=== PATIENT | female | born 1985 | race Caucasian/White ===

== ENCOUNTER 2023-11-04 20:50 | Outpatient (REF) | payer OTHER, SELFPAY ==
[2023-11-07 16:10] LABS: Age Gdln ACOG Testing Note (.); HPV Aptima Negative (Negative); IGP, Aptima HPV, rfx 16/18,45 Note (.)
== END 2023-11-04 20:51 | disposition home or self-care (01) ==
LOC: LAB 20:50
PROVIDERS: Visit Provider Obstetrics & Gynecology
DX: Z01.419 Encounter for gynecological examination (general) (routine) without abnormal findings (principal)
CPT/HCPCS: 87624; G0145

== ENCOUNTER 2024-11-09 21:18 | Outpatient (REF) | payer OTHER, SELFPAY ==
--- OUTSIDE RECORDS SUMMARY | 2024-11-09 21:22 | XMS_ITS | CCD ---
Author Organization [facility] Care Team Providers Care Professor Of Social Work Name Role Phone DR PALMIRA WORTHY Primary Care Unavailable BLAIR, DR OTERO Attending Unavailable BLAIR, DR OTERO Consulting Unavailable BLAIR, DR OTERO Admitting Unavailable Anastasiia Castro Unavailable Xiao Langford Unavailable Palmira Worthy MD Primary Care Provider [phone] BRANDEN PINTO Attending Unavailable Palmira Worthy MD Primary Care Provider [phone] YASMEEN BRAND Attending Unavailable PALMIRA WORTHY Referring Unavailable PALMIRA WORTHY Primary Care Unavailable YASMEEN BRAND Attending Unavailable YASMEEN BRAND Referring Unavailable PALMIRA WORTHY Primary Care Unavailable YASMEEN BRAND Referring Unavailable PALMIRA WORTHY Primary Care Unavailable Allergies Allergy Classification Reported Allergen(s) Allergy Type Date of Onset Reaction(s) Facility (1 source) patient allergy list reviewed by nurse or physicia Propensity to adverse reactions 9 Comment:Done [facility] ([facility] Other (1 source) Allergies Reconciled Propensity to adverse reactions Unknown [facility] ([facility] Other Medications Current Medications Medication Drug Class(es) Dates Sig (Normalized) Sig (Original) amoxicillin 500 mg oral capsule (1 source) Penicillin-class Antibacterial Start: 12-19-2022 take 1 capsule by mouth every eight hours Amoxicillin 500 MG 1 capsule Orally three times a day for 10 day(s) Dec, Active chlorthalidone 50 mg oral tablet (19 sources) Thiazide-like Diuretic Start: 11-06-2022 End: 08-31-2024 take 1 tablet by mouth once daily chlorthalidone (Hygroton) 50 MG tablet Take 50 mg by mouth Daily 08/31/2024 Active dextromethorphan hydrobromide 15 mg / guaiFENesin 400 mg / pseudoephedrine hydrochloride 60 mg oral tablet (5 sources) alpha-Adrenergic Agonist, Uncompetitive D-bfaquz-W-asparta te Receptor Antagonist, Sigma-1 Agonist Start: 10-06-2023 End: 11-09-2024 take 1 tablet by mouth every four to six hours as needed Capmist DM 60-15-400 MG tablet TAKE 1 TAB BY MOUTH EVERY 4 TO 6 HRS NEEDED (MAX 4 /DAY) 10/06/2023 11/09/2024 Discontinued Start: 10-06-2023 take 4 tablets by [facility] every twenty-four hours as needed Capmist DM 60-15-400 MG as needed Orally every 4-6 hours as needed, max 4 tablets in 24 hours for 5 days Sep, Active FLUoxetine 20 mg oral capsule (4 sources) Serotonin Reuptake Inhibitor End: 11-09-2024 FLUoxetine (PROzac) 20 MG capsule 11/09/2024 Discontinued hydroCHLOROthiazide 25 mg oral tablet (8 sources) Thiazide Diuretic End: 11-09-2024 hydroCHLOROthiazide (HYDRODiuril) 25 MG tablet 1 (one) time each day at the same time 11/09/2024 Discontinued End: 11-09-2024 take 2 tablets by mouth once daily hydroCHLOROthiazide (HYDRODiuril) 25 MG tablet Take 50 mg by mouth Daily 11/09/2024 Discontinued hydroCHLOROthiaz pipe Active hydrocortisone 10 mg/ml / neomycin 3.5 mg/ml / polymyxin b [id number] unt/ml otic suspension (1 source) Aminoglycoside Antibacterial, Polymyxin-class Antibacterial, Corticosteroid Start: 12-19-2022 Ckwvlufo-Ghweqxiyl-RA 3.5-24878-8 3 drops each ear Three times a day for 7 days Dec, Active Magnesium (2 sources) Start: 10-07-2024 take 1 capsule by mouth once daily Magnesium 400 MG capsule Take 400 mg by mouth Daily 10/07/2024 Active Magnesium Aspart,Citrate,Oxi de 400 mg magnesium capsule (2 sources) Start: 10-20-2024 Magnesium Aspart,Citrate,Oxide 400 mg magnesium capsule Active MG PO October 20, 2024 12:00am meclizine hydrochloride 25 mg chewable tablet (4 sources) Antiemetic Start: 10-20-2024 Meclizine HCl 25 MG chewable tablet Chew 25 mg Daily 10/20/2024 Active Start: 10-20-2024 take 0.5-1 tablets b y mouth twice daily as needed for dizziness Meclizine 25 mg tablet Active 25 MG PO Twice daily as needed for dizziness October 20, 2024 12:00am 1/2 - 1 tab po bid prn methylPREDNISolone 4 mg oral tablet (1 source) Corticosteroid Start: 10-06-2023 methylPREDNISolone 4 MG as directed Orally for 6 Sep, Active metoprolol tartrate 25 mg oral tablet (20 sources) beta-Adrenergic Myke Start: 10-20-2024 take 1 tablet by mouth twice daily at mealtime Start: 08-14-2024 End: 08-31-2024 take 1 tablet by mouth every twenty-four hours in the morning, then take 1 tablet by mouth once daily in the morning, then take 1 tablet by mouth at bedtime metoprolol succinate XL (TOPROL XL) 25 mg 24 hr tablet Indications: Palpitations , Essential hypertension , Localized edema , Shortness of breath , Other fatigue Take 1 tablet (25 mg total) by mouth in the morning. TAKE 1 TABLET BY MOUTH EVERY MORNING AND 1 TABLET BEFORE BEDTIME. 180 tablet 2 08/31/2024 Active Start: 06-04-2024 End: 08-14-2024 take 1 tablet by mouth once daily in the morning metoprolol succinate XL (TOPROL XL) 25 mg 24 hr tablet Indications: Palpitations , Essential hypertension , Localized edema , Shortness of breath , Other fatigue TAKE 1 TABLET BY MOUTH EVERY MORNING AND 1 TABLET BEFORE BEDTIME 180 tablet 06/04/2024 08/14/2024 Discontinued (Reorder) Start: 02-15-2023 take 1 tablet by bienvenido th every twenty-four hours in the morning, then take 1 tablet by mouth at bedtime metoprolol succinate XL (TOPROL XL) 25 mg 24 hr tablet Indications: Palpitations , Essential hypertension , Localized edema , Shortness of breath , Other fatigue Take 1 tablet (25 mg total) by mouth in the morning and 1 tablet (25 mg total) before bedtime. 180 tablet 3 02/15/2023 Active metoprolol succi souleymane XL (Toprol-XL) 50 MG 24 hr tablet 1 (one) time each day at the same time Active take 1 tablet by bienvenido th every twelve hours Denali-Linyah (2 sources) Denali-Linyah Acti ve multivit-min/ferrous fumarat e (MULTI VITAMIN ORAL) (12 sources) take 1 tablet by mouth once daily multivit-min/ferrous fumarate (MULTI VITAMIN ORAL) Take 1 tablet by mouth daily. Active take 1 tablet by mouth once dhaval y multivit-min/ferrous fumarate (MULTI VITAMIN ORAL) Take 1 tablet by mouth daily. 0 Active Potassimin (2 sources) Potassimin Activ e potassium 75 mg oral tablet (2 sources) Start: 10-20-2024 Potassium 75 m g tablet Active MG PO October 20, 2024 12:00am microencapsulated potassium chloride 20 meq extended release oral tablet (20 sources) Start: 09-17-2023 End: 08-31-2024 potassium chloride CR (Klor-Con M20) 20 MEQ ER tablet Take 20 mEq by mouth in the morning. 10/25/2023 Active Completed/Discontinued Medications Medication Drug Class(es) Dates Sig (Normalized) Sig (Original) Ethinyl Estradiol / Ferrous fumarate / Norethindrone (5 sources) Estrogen Start: 09-24-2020 End: 08-17-2024 take 1 tablet by mouth once in the morning BLISOVI FE 1/20, 28, 1 mg-20 mcg (21)/75 mg (7) per tablet Take 1 tablet by mouth in the morning. 09/24/2020 08/17/2024 Discontinued (Therapy completed) Start: 09-24-2020 take 1 tablet by bienvenido th once daily BLISOVI FE 1/20, 28, 1 mg-20 mcg (21)/75 mg (7) per tablet Take 1 tablet by mouth daily. 09/24/2020 Active Start: 09-24-2020 take 1 tablet by bienvenido th once daily BLISOVI FE 1/20, 28, 1 mg-20 mcg (21)/75 mg (7) per tablet Take 1 tablet by mouth daily. 0 09/24/2020 Active Problems Active Problems Problem Classification Problem Date Documented Date Episodic/Chronic Anxiety disorders (2 sources) Anxiety disorder; Translations: [Anxiety disorder, unspecified] Onset: 02-06-2017 Chronic Contraceptive and procreative management (1 source) Surveillance of oral contraception done; Translations: [Encounter for surveillance of contraceptive pills] Episodic Diabetes mellitus without complication (1 source) Abnormal glucose level; Translations: [Other abnormal glucose] Episodic Essential hypertension (9 sources) Essential hypertension; Translations: [Essential (primary) hypertension] Onset: 04-10-2019 10-21-2023 Chronic Fluid and electrolyte disorders (5 sources) Hypokalemia; Translations: [Hypokalemia] Onset: 08-14-2024 10-25-2023 Episodic Malaise and fatigue (6 sources) Malaise and fatigue; Translations: [Other malaise and fatigue] Onset: 02-06-2017 10-21-2023 Episodic Nonmalignant breast conditions (1 source) Breast signs and symptoms; Translations: [Other signs and symptoms in breast] Episodic Nonspecific chest pain (1 source) Chest pain Onset: 08-14-2024 Episodic Other complications of (1 source) Anemia in mother complicating , childbirth AND/OR puerperium; Translations: [Anemia complicating , unspecified trimester] Chronic Other complications of (1 source) ultrasound scan abnormal; Translations: [Abnormal ultrasonic finding on screening of mother] Episodic Other ear and sense organ disorders (1 source) Unspecified acute noninfective otitis externa, bilateral Episodic Other lower respiratory disease (3 sources) Dyspnea; Translations: [Shortness of breath] 10-21-2023 Episodic Other lower respiratory disease (3 sources) Snoring; Translations: [Snoring] 08-17-2024 Episodic Other lower respiratory disease (1 source) Snoring; Translations: [Snoring] Onset: 08-14-2024 Episodic Other lower respiratory disease (1 source) Shortness of breath; Translations: [Shortness of breath] Onset: 08-14-2024 Episodic Other nutritional; endocrine; and metabolic disorders (1 source) Body mass index 30+ - obesity; Translations: [Body mass index (BMI) 34.0-34.9, adult] 10-30-2024 Chronic Other and delivery including normal (5 sources) Primigravida; Translations: [Encounter for supervision of normal first , unspecified trimester] Episodic Other screening for suspected conditions (not mental disorders or infectious disease) (5 sources) Encounter for screening for malignant neoplasm of cervix; Translations: [Abnormal findings on diagnostic imaging of breast] Onset: 10-30-2022 Episodic Otitis media and related conditions (2 sources) Otitis media, unspecified, bilateral; Translations: [Other acute nonsuppurative otitis media, bilateral] Episodic Residual codes; unclassified (3 sources) Obstructive sleep apnea syndrome; Translations: [Obstructive sleep apnea (adult) (pediatric)] Onset: 10-30-2024 10-30-2024 Chronic Residual codes; unclassified (1 source) Daytime somnolence; Translations: [Other hypersomnia] 10-30-2024 Chronic Residual codes; unclassified (3 sources) Localized edema; Translations: [Localized edema] 10-21-2023 Episodic Residual codes; unclassified (1 source) Localized edema; Translations: [Localized edema] Onset: 08-14-2024 Episodic Residual codes; unclassified (1 source) Detailed recall of dream; Translations: [Other general symptoms and signs] 10-30-2024 Episodic Past or Other Problems Problem Classification Problem Date Documented Date Episodic/Chronic Cardiac dysrhythmias (19 sources) Palpitations; Translations: [Palpitations] Onset: 04-10-2019 10-21-2023 Episodic Deficiency and other anemia (1 source) Iron deficiency anemia; Translations: [Iron deficiency anemia, unspecified] Onset: 02-06-2017 Episodic Immunizations and screening for infectious disease (2 sources) Encounter for screening for human papillomavirus (HPV); Translations: [Sexually transmitted infectious disease] Onset: 10-31-2022 Resolved: 09-16-2017 Episodic Residual codes; unclassified (12 sources) Bilateral lower limb edema; Translations: [Localized edema] Onset: 02-17-2021 02-17-2021 Episodic Unclassified (1 source) Acute cough R05.1 Results Test Name Value Interpretation Reference Range Facil ity POCT EKGon 08-14-2024 [facility] IGP,APTIMA HPV,AGE GDLNon AGE GDLN ACOG TESTING Note . [facility] Comment on above: TESTS RESULT FLAG UNITS REF RANGE LAB Clinician Provided Cytology Information Source.............Cervix;Endocervix No. of containers..01 ThinPrep Vial Age Nico COLIN Marybeth... 31 FLAG LEGEND: L-Low Normal,H-High Normal,LL-Alert Low,HH-Alert High <-Panic Low,>-Panic High,A-Abnormal,AA-Critical Abnormal Performed at: 01 =G [address] [id number] Samaria Bonner MD, HPV APTIMA Negative Negative [facility] Comment on above: This nucleic acid amplification test det ects fourteen high- risk HPV types (16,18,31,33,35,39,45,51,52,56,58,59,66,68) without differentiation. Performed at: =[address] [id number] Metal Dealer: Samaria Bonner MD, Phone: [phone] Performed at: - [address] [id number] Metal Dealer: Samaria Bonner MD, Phone: [phone] IGP, APTIMA HPV, RFX 16/18,45 Note . [facility] Comment on above: TESTS RESULT FLAG UNITS REF RANGE LAB DIAGNOSIS: 02 NEGATIVE FOR INTRAEPITHELIAL LESION OR MALIGNANCY. Specimen adequacy: 02 Satisfactory for evaluation. Endocervical and/or squamous metaplastic cells (endocervical component) are present. Performed by: 02 Eleazar Dempsey, Dope And Fabric Worker ([facility]) . 02 Note: Note 02 The Pap smear is a screening test designed to aid in the detection of premalignant and malignant conditions of the uterine cervix. It is not a diagnostic procedure and should not be used as the sole means of detecting cervical cancer. Both false-positive and false-negative reports do occur. Test Methodology: Note 02 This liquid based ThinPrep(R) pap test was screened with the use of an image guided system. HPV Genotype Reflex Note 02 Criteria not met, HPV Genotype not performed. FLAG LEGEND: L-Low Normal,H-High Normal,LL-Alert Low,HH-Alert High <-Panic Low,>-Panic High,A-Abnormal,AA-Critical Abnormal Performed at: [address] [id number] Samaria Bonner MD, BRUSH-SPATULA CERVIX ENDOCERVIX [facility] COVID + FLU Quick Testingon 10-06-2023 SARS-CoV-2 (COVID-19) RNA DONOVAN+probe Ql (Unsp spec) Negative [facility] ([facility] Other COVID + FLU Quick Testing Negative [facility] [facility] ([facility]) Other PAP ACOG PANEL 2: 30 to 65on 11-06-2022 . . Normal [facility] Comment on above: Result Comment: Performed at: [facility] Performed By: #### [id number] #### [facility] Laboratory [address] [place] [address] Dr. Khai Kim Age Gdln ACOG Testing 30-65 Normal [facility] Comment on above: Performed By: #### [id number] #### [facility] [address] [place] [address] Dr. Khai Kim DIAGNOSIS: Comment Normal [facility] Comment on above: Result Comment: NEGATIVE FOR INTRAEPITHE LIAL LESION OR MALIGNANCY. Performed at: [facility] Performed By: #### [id number] #### [facility] [address] [place] [address] Dr. Khai Kim HPV Aptima Negative Normal Negative [facility] Comment on above: Result Comment: This nucleic acid amplif ication test detects fourteen high-risk HPV types (16,18,31,33,35,39,45,51,52,56,58,59,66,68) without differentiation. Performed at: =G Performed By: #### [id number] #### [facility] [address] [place] [address] Dr. Khai Kim HPV Genotype Reflex Comment Normal [facility] Comment on above: Result Comment: Criteria not met, HPV Ge notype not performed. Performed at: [facility] Performed By: #### [id number] #### [facility] [address] [place] [address] Dr. Khai Kim Methodology: Comment Normal [facility] Comment on above: Result Comment: This liquid based ThinPr ep(R) pap test was screened with the use of an image guided system. Performed at: [facility] Performed By: #### [id number] #### [facility] [address] [place] [address] Dr. Khai Kim Note: Comment Normal [facility] Comment on above: Result Comment: The Pap smear is a scree raheel test designed to aid in the detection of premalignant and malignant conditions of the uterine cervix. It is not a diagnostic procedure and should not be used as the sole means of detecting cervical cancer. Both false-positive and false-negative reports do occur. . Performed at: [facility] Performed By: #### [id number] #### [facility] [address], [place] [address] Dr. Khai Kim Performed by: Comment Normal [facility] Comment on above: Result Comment: Anderson Staples chnologist (ASCP) Performed at: [facility] Performed By: #### [id number] #### [facility] [address], [place] [address] Dr. Khai Kim Specimen adequacy: Comment Normal [facility] Comment on above: Result Comment: Satisfactory for evaluat ion. No endocervical component is identified. Performed at: [facility] Performed By: #### [id number] #### [facility] [address], [place] [address] Dr. Khai Kim Vital Signs Date Time Vital Sign Value Performing Clinician Facility 11-09-2024 09:11-0500 Body mass index (BMI) [Ratio] 33.73 kg/m2 Juliana PINO Work Phone: [facility] 11-09-2024 09:11-0500 Body weight 83.64 kg Juliana PINO Work Phone: [facility] 11-09-2024 09:11-0500 Diastolic blood pressure 76 mm[Hg] Juliana PINO Work Phone: [facility] 11-09-2024 09:11-0500 Systolic blood pressure 110 mm[Hg] Juliana PINO Work Phone: [facility] 10-20-2024 11:13-0500 Body height 157.48 cm [facility] 10-20-2024 11:13-0500 Body mass index (BMI) [Ratio] 34.2 kg/m2 [facility] 10-20-2024 11:13-0500 Body weight 84.82 kg [facility] 10-20-2024 11:13-0500 Diastolic blood pressure 79 mm[Hg] [facility] 10-20-2024 11:13-0500 Heart rate 88 /min [facility] 10-20-2024 11:13-0500 Systolic blood pressure 114 mm[Hg] [facility] 10-05-2024 19:31-0500 Body height 157.5 cm [facility] 10-05-2024 19:31-0500 Body mass index (BMI) [Ratio] 34.57 kg/m2 [facility] 1 [facility] 10-05-2024 19:31-0500 Body weight 85.73 kg [facility] 1 [facility] 08-14-2024 13:38-0500 Body height 157.5 cm Yasmeen Brand MD Work Phone: [facility] 08-14-2024 13:38-0500 Body mass index (BMI) [Ratio] 34.57 kg/m2 Yasmeen Brand MD Work Phone: [facility] [employer] 08-14-2024 13:38-0500 Body weight 85.73 kg Yasmeen Brand MD Work Phone: [facility] 08-14-2024 13:38-0500 Diastolic blood pressure 70 mm[Hg] Yasmeen Brand MD Work Phone: [facility] 08-14-2024 13:38-0500 Heart rate 78 /min Yasmeen Brand MD Work Phone: [facility] [employer] 08-14-2024 13:38-0500 SaO2% (BldA) [Mass fraction] 97 % [facility] Brand [facility] 08-14-2024 13:38-0500 Systolic blood pressure 112 mm[Hg] Yasmeen Brand MD [facility] 10-06-2023 14:20-0500 Body height 157.48 cm Xiao Langford Other [facility] Other 10-06-2023 14:20-0500 Body mass index (BMI) [Ratio] 35.19 kg/m2 Xiao Langford Other [facility] Other 10-06-2023 14:20-0500 Body temperature 98.1 [degF] Xiao Langford Other [facility] Other 10-06-2023 14:20-0500 Body weight 87.27 kg Xiao Langford Other [facility] Other 10-06-2023 14:20-0500 Respiratory rate 18 /min Xiao Langford Other [facility] Other 10-06-2023 14:20-0500 SaO2% (BldA) [Mass fraction] 98 % Xiao Langford Other [facility] Other 12-19-2022 16:05-0400 Body height 157.48 cm Anastasiia Hutchinsonmond Other [facility] Other 12-19-2022 16:05-0400 Body mass index (BMI) [Ratio] 31.09 kg/m2 Anastasiia Castro Other [facility] ([facility] Other 12-19-2022 16:05-0400 Body temperature 96.9 [degF] Anastasiia Hutchinsonmond Other [facility] Other 12-19-2022 16:05-0400 Body weight 77.11 kg Anastasiia Hutchinsonmond Other [facility] Other 12-19-2022 16:05-0400 Respiratory rate 18 /min Anastasiia Hutchinsonmond Other [facility] Other 12-19-2022 16:05-0400 SaO2% (BldA) [Mass fraction] 98 % Anastasiia Hutchinsonmond Other [facility] Other Encounters Encounter Date Encounter Type Care Provider Facility Start: 11-09-2024 End: 11-09-2024 Bamboo flowsheet Juliana PINO Work Phone: [facility] Start: 11-09-2024 End: 11-09-2024 Bamboo flowsheet Juliana PINO Work Phone: [facility] Start: 11-09-2024 End: 11-09-2024 Patient encounter procedure Juliana PINO Work Phone: [facility] Work Phone: Start: 11-09-2024 End: 11-09-2024 Periodic preventive med est patient 18-39 yrs Juliana PINO Work Phone: [facility] Comment on above: Well woman exam with routine gynecological exam Start: 10-30-2024 End: 10-30-2024 Documentation procedure Maude Begum CMA [facility] Start: 10-30-2024 End: 10-30-2024 Office outpatient new 45 minutes Abi Nguyen ASSISTANT PROFESSOR OF SURGERY-SASH CLAMP OPERATOR [facility] Comment on above: JOSE (obstructive sle ep apnea) (Primary Dx); Excessive daytime sleepiness; BMI 34.0-34.9,adult; [employer] Start: 10-20-2024 Patient encounter status [facility] Start: 10-20-2024 End: 10-20-2024 ambulatory [facility] Work Phone: Start: 10-20-2024 End: 10-20-2024 Patient encounter procedure [facility] Work Phone: Start: 10-15-2024 End: 10-15-2024 Telephone encounter Dayna Loya MD Work Phone: [facility] Start: 10-05-2024 End: 10-05-2024 Clinical Support Yasmeen Brand MD Work Phone: [facility] Comment on above: Snoring Start: 10-05-2024 End: 01-03-2025 ambulatory [facility] Start: 08-31-2024 End: 08-31-2024 Refill [facility] Comment on above: Med Refill Start: 08-28-2024 End: 08-28-2024 [facility] Start: 08-19-2024 End: 08-19-2024 Telephone encounter Yasmeen Brand MD Work Phone: [facility] Comment on above: Sleep Lab ([facility]) Start: 08-14-2024 End: 08-14-2024 Office outpatient visit 25 minutes Yue Hoover MD Work Phone: [facility] Comment on above: Palpitations (Primar y Dx); Snoring; Essential hypertension; Localized edema; Shortness of breath; Other fatigue; Hypokalemia Start: 08-14-2024 End: 08-14-2024 [facility] Start: 08-13-2024 End: 08-13-2024 Telephone encounter Therese Smith CMA [facility] Start: 12-16-2023 Refill Zee Mike cki ASSISTANT PROFESSOR OF SURGERY-SASH CLAMP OPERATOR Work Phone: [facility] Comment on above: Med Refill Start: 11-04-2023 [facility] Result Encounter Branden Blair DO Work Phone: [facility] Unsolicited Start: 11-04-2023 [facility] Result Encounter Branden Blair DO Work Phone: [facility] Unsolicited Start: 11-04-2023 End: 11-04-2023 ambulatory BRANDEN BLAIR Not Available Start: 10-25-2023 Refill Sandy Machado RN [facility] Comment on above: Med Refill Start: 10-21-2023 Refill Jayro Mathis sser ASSISTANT PROFESSOR OF SURGERY-SASH CLAMP OPERATOR Work Phone: [facility] Comment on above: Med Refill Start: 10-06-2023 End: 10-06-2023 ambulatory Xiao Langford Other [facility] Other Start: 10-06-2023 Office outpatient vi sit 25 minutes Xiao Langford [facility] Start: 12-19-2022 End: 12-19-2022 ambulatory Anastasiia Hutchinsonmond Other [facility] [facility] ([facility] Other Start: 12-19-2022 Office outpatient vi sit 15 minutes Anastasiianoble [facility] Start: 10-30-2022 End: 10-30-[address] PALMIRA WORTHY Facility: Start: 09-13-2021 Gynecological examination normal Xiao Langford Other [facility] [facility] [facility] ([facility]) Other Procedures Date Procedure Procedure Detail Performing Clinician Start: 08-14-2024 Ecg routine ecg w/le ast 12 lds w/i&r Yasmeen Brand MD Work Phone: Start: 08-14-2024 Follow-up visit Follow-up YASMEEN BAEZA Start: 11-04-2023 IGP,APTIMA HPV,AGE GDLN Branden Pinto 55social Work Phone: Start: 11-04-2023 Microscopic observat ion [Identifier] in Cervix by Cyto stain Juliana PINO Work Phone: Start: 10-30-2022 Microscopic observat ion [Identifier] in Cervix by Cyto stain Branden Pinto DO Work Phone: Contraception care education Xiao Langford Other Diabetes mellitus screening Xiao Langford Other visit Xiao Langford Other Routine care Xiao Langford Other Screening for malign ant neoplasm of breast Xiao Lagnford Other Plan of Treatment Date Care Activity Detail Author Start: 10-30-2027 Screening for malignant neoplasm of cervix [facility] Start: 01-29-2027 Screening for malignant neoplasm of cervix Pap Smear [facility] Start: 10-30-2025 Screening for malignant neoplasm of cervix Pap Smear [facility] Start: 10-30-2025 Tobacco Screening Tobacco Screening [facility] Start: 10-05-2025 Adult BMI Screening Adult BMI Screen ing [facility] Start: 10-05-2025 Tobacco Screening Tobacco Screening [facility] Start: 08-14-2025 Adult BMI Screening Adult BMI Screen ing [facility] Start: 08-14-2025 Tobacco Screening Tobacco Screening [facility] Start: 11-09-2024 End: 11-09-2024 Patient encounter procedure [facility] Comment on above: Arrived Start: 10-30-2024 End: 10-30-2024 Telemedicine consultation with patient 10/30/2024 10:00 AM EST Telemedicine [facility] [address] [id number] Abi Nguyen APRN-SASH CLAMP OPERATOR [address] [address] [facility] Start: 10-05-2024 End: 10-05-2024 Clinical Support 10/05/2024 7:30 PM EST Clinical Support [facility] [address] [place] [id number] Yasmeen Brand MD [address] [place] [address] [facility] Start: 08-28-2024 End: 08-28-2024 Patient encounter procedure 08/28/2024 9:30 AM EST Appointment [facility] [address] [place] [id number] Yasmeen Brand MD [address] [place] [address] [facility] Start: 08-14-2024 End: 08-14-2025 Holter monitor study Holter monitor 3-5 days Cardiac Services Routine Palpitations Expected: 08/14/2024, Expires: 08/14/2025 [facility] Work Phone: Comment on above: Expected: 08/14/2024 , Expires: 08/14/2025 Start: 08-14-2024 End: 08-14-2024 Patient encounter procedure 08/14/2024 2:00 PM EST Office Visit [facility] [address] [place] [phone] Yue Hoover MD [address] [place] [address] Yasmeen Brand MD [address] [place] [address] [facility] Start: 08-09-2024 Adult BMI Screening Adult BMI Screen ing [facility] Start: 08-09-2024 Tobacco Screening Tobacco Screening [facility] Start: 06-07-2024 COVID-19 Vaccine ( season) COVID-19 Vaccine ( season) [facility] Start: 06-07-2024 Influenza vaccination [facility] Start: 06-07-2023 COVID-19 Vaccine ( season) COVID-19 Vaccine ( season) [facility] Start: 2007 Screening for malignant neoplasm of cervix Pap Smear [facility] Start: 2005 DTaP,Tdap and Td Vaccines (1 - Tdap) DTaP,Tdap and Td Vaccines (1 - Tdap) [facility] Start: 2004 Adult BMI Follow Up Plan Adult BMI Follow Up Plan [facility] Start: 1998 Depression Screening Depression Scre ening [facility] Comprehensive metabolic 2000 panel - Serum or Plasma [facility] Cytology Cervical or vaginal smear or scraping study Pap Smear Pathology and Cytology Routine Well woman exam with routine gynecological exam Ordered: 11/09/2024 [facility] Work Phone: Comment on above: Ordered: 11/09/2024 End: 08-14-2025 Home sleep study Home sleep study Sleep Center Routine Snoring 1 Occurrences starting 08/14/2024 until 08/14/2025 [facility] Comment on above: 1 Occurrences starti ng 08/14/2024 until 08/14/2025 Human papilloma viru s DNA [Presence] in Unspecified specimen by Probe with amplification HPV DNA probe, amplified Microbiology Routine Well woman exam with routine gynecological exam [facility]: [facility]20[facility] Comment on above: Ordered: 11/09/2024 Patient Education Vestibular Exercises [facility] Work Phone: [facility] Immunizations Immunization Date Immunization Notes Care Provider [facility] 07-16-2023 influenza virus vacc ine, unspecified formulation Therese Smith [facility] 03-16-2022 COVID-19 Vaccine Pfi zer - Documentation Purposes Only Xiao Langford Other [facility] Payers Date Payer Category Payer Private Health Insurance [employer] [id number] 2022 Commercial Managed C are - O [employer] [id number] 2022 Unknown [id number] 1986 Unknown [id number] 1986 Unknown [id number] 1986 Unknown [id number] 1986 Unknown [id number] 1986 Unknown [id number] 1959 Unknown [id number] Social History Date Type Detail Facility Unknown if ever smoked [facility] ([facility] Other Start: 08-09-2023 End: 11-09-2024 Sex Assigned At [facility] [facility] Other Start: 08-09-2023 End: 10-14-2023 Tobacco smoking status INIS Ex-smoker [facility] End: 10-07-2019 History of tobacco use Current smoker [facility] End: 10-07-2019 History of tobacco use Cigarette Smoker [facility] Start: 08-09-2023 Tobacco use and exposure Smokeless tobacco non-user [facility] Start: 08-09-2023 End: 11-09-2024 Alcohol intake Current drinker of alcohol (finding) [facility] Start: 08-09-2023 End: 11-09-2024 History of Social function [facility] Housing Instability Unknown [facility] Start: 11-25-2020 Alcohol Comment occasional [facility] Start: 1985 Sex Assigned At Female [facility] Start: 09-28-2019 Gender identity Identifies as female gender (finding) [facility] Start: 09-28-2019 Sexual orientation Heterosexual (finding) [facility] How often to you hav e a drink containing alcohol? Monthly or less [facility] How many standard drinks containing alcohol do you have on a typical day? 3 or 4 [facility] How often do you hav e 6 or more drinks on 1 occasion? Never [facility] Start: 05-12-2015 End: 10-20-2024 Sex Female (finding) [facility] Work Phone: Clinical Notes 04-10-2019 to 11-09-2024 ALVAREZ Starr - 11/09/2024 9:00 AM Iesha Begum CMA - 10/30/2024 10:37 AM Bibiana Nguyen APRN-LINDA - 10/30/2024 10:00 AM ESTPatient Naun Brand MD - 08/14/2024 2:00 PM EST Note Date & Type Note Facility 11-09-2024 History of Presen t illness Narrative Reason for Appointment: Patient ID: Lucrecia Judge is a 39 y.o. female who presents for Well Women Visit Patient presents today for Annual Exam. MEDICATIONS Current Outpatient Medications Medication Instructions chlorthalidone (HYGROTON) 50 mg, Daily Magnesium 400 mg, Daily Meclizine HCl 25 mg, Daily metoprolol succinate XL (Toprol-XL) 50 MG 24 hr tablet Every 24 hours potassium chloride CR (Klor-Con M20) 20 MEQ ER tablet 20 mEq, Daily RT ALLERGIES No Known Allergies PROBLEMS Active Ambulatory Problems Diagnosis Date Noted No Active Ambulatory Problems Resolved Ambulatory Problems Diagnosis Date Noted No Resolved Ambulatory Problems Past Medical History: Diagnosis Date Abnormal breast finding Abnormal mammogram Anemia, iron deficiency Anxiety and depression (CMS/HCC) Benign essential HTN (CMS/HCC) Breast cancer screening by mammogram Family planning Fatigue Heart palpitations Obesity (BMI 30-39.9) Sleep apnea Well woman exam HISTORY PAST MEDICAL HISTORY SOCIAL HISTORY Past Medical History: Diagnosis Date Abnormal breast finding Abnormal mammogram Anemia, iron deficiency Anxiety and depression (CMS/HCC) Benign essential HTN (CMS/HCC) Breast cancer screening by mammogram Family planning Fatigue Heart palpitations Obesity (BMI 30-39.9) Sleep apnea Well woman exam Social History Tobacco Use Smoking status: Former Types: Cigarettes Smokeless tobacco: Not on file Substance Use Topics Alcohol use: Yes Drug use: Never FAMILY HISTORY Family History Problem Relation Name Age of Onset Diabetes Father Hypertension Father Cancer Paternal Grandmother Arthritis Paternal Grandmother SURGICAL HISTORY Past Surgical History: Procedure Laterality Date BREAST BIOPSY Right 2017 REVIEW OF SYSTEMS Review of Systems: Review of Systems All other systems reviewed and are negative. OBJECTIVE Objective: Physical Exam Constitutional: Appearance: Normal appearance. She is well-developed. Genitourinary: Vulva normal. Right Adnexa: not tender and no mass present. Left Adnexa: not tender and no mass present. No cervical discharge. IUD strings visualized. Breasts: Breasts are soft. Right: Normal. Left: Normal. HENT: Head: Normocephalic. Nose: Nose normal. Mouth/Throat: Mouth: Mucous membranes are moist. Cardiovascular: Rate and Rhythm: Normal rate and regular rhythm. Pulmonary: Effort: Pulmonary effort is normal. Breath sounds: Normal breath sounds. Abdominal: General: Bowel sounds are normal. There is no distension. Palpations: Abdomen is soft. Tenderness: There is no abdominal tenderness. There is no guarding or rebound. Musculoskeletal: General: No swelling. Normal range of motion. Cervical back: Normal range of motion. Right lower leg: No edema. Left lower leg: No edema. Neurological: General: No focal deficit present. Mental Status: She is alert and oriented to person, place, and time. Skin: General: Skin is warm and dry. Psychiatric: Mood and Affect: Mood normal. Behavior: Behavior normal. Vitals and nursing note reviewed. Exam conducted with a squeegee operator present. Vitals: Estimated body mass index is 33.73 kg/m as calculated from the following: Height as of 01/21/23: 5' 2 . Weight as of this encounter: 184 lb 6.4 oz. BP: 110/76 No LMP recorded. (Menstrual status: No Periods). ASSESSMENT & PLAN ICD-10-CM 1. Well woman exam with routine gynecological exam Z01.419 Pap Smear HPV DNA probe, amplified Annual Exam: Patient presents today for an annual exam. Patient states she is doing well and has no complaints. Pap was obtained without difficulty. Orders Placed This Encounter Procedures HPV DNA probe, amplified Follow Up: Patient is to return in one year for annual unless needed otherwise. Documented by Zoraida Chaudhari LPN on behalf of: ALVAREZ Starr documented in this encounter [facility] 10-30-2024 History of Presen t illness Narrative 6 Month Recall Has Been Made For Pt Follow Up & Pt Info Has Been Faxed Over To Dme: [facility]. Faxed Items: Supply Order , Demographic Sheet, Recent Office Notes, Sleep Study & Notes Attached To Referral. documented in this encounter [facility] 10-30-2024 History of Presen t illness Narrative Video Visit via Real-time Synchronous Audiovisual Provider Location: 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 We elected to proceed. Lucrecia Judge is a 39 y.o. female Patient is being referred by their primary care provider and weight engineer The patient reports she is having excessive daytime sleepiness, am fatigue, difficulty maintaining sleep, vivid dreams, nocturia x0 times a night, leg kicking, toss and turning and witnessed apnea. she denies having cataplexy. Denies having any parasomnias. Reports am RINCON, grinding teeth and dry mouth. Bedtime is 9-10 p.m. and she reports her awaken time is 5- 6 a.m.. Sleep Onset: 3 minutes. She wakes up spontaneously unknown times per night. Napping: None. She reports this has been going on for a number of years now and is getting worse. Denies having family history of JOSE. She has not fallen asleep while driving but has become relaxed and fatigued. She does drink 1 caffeinated beverages a day. she reports smoking 1 PPD x 23 years and quit 5 years ago, started at age 11. She denies any dyspnea, fevers, chills, chest pain or hemoptysis. 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 Reports having pets at home that donot sleep in her bed, 3 dogs and 1 cat. TV before bed time. Magnesium at nighttime. ETOH: nightly Marijuana: none Sleep Medications: none RLS: none Exercise: nothing Sleep study results: 10/05/2024 HSAT: CROW 7.6, Min SpO2 88%, weight 189 lb Answers submitted by the patient for this visit: Sleep Questionnaire (Submitted on 10/29/2024) Excessive daytime sleepiness: Yes Frequent snoring: No Snore yourself awake from sleep: No Witnessed apneas (holding breath during sleep): No Waking up choking, gasping or short of breath: No Excessively sweating overnight: No Waking up with dry mouth or sore throat: Yes Morning headaches: Yes Waking up to urinate at night: No Nighttime heartburn interfering with sleep: No Frequent disturbing dreams or nightmares: No Sleep walking: No Unusual behaviors during sleep: No Injury to yourself or partner during sleep: No Imagine seeing or hearing things that are not real as you fall asleep or wake up: Yes Momentary inability to move body (paralysis) as falling askeep or waking up: No Insomnia (difficulty falling asleep or staying asleep): Yes Teeth clenching/grinding: No Waking up disoriented / confused: No What time do you get into bed?: 9:00 PM What time do you try to go to sleep?: 10:00 PM Time it takes to fall asleep (minutes): 3 What time do you wake up?: 5:00 AM What time do you get out of bed?: 6:00 AM Do you watch TV, read or use phone/computer in bed?: Yes Number of dylwpe-wl-rry-night awakenings per night?: Review my sleep study Cause of awakenings (if applicable):: Dont know. Total average number of hours of sleep per night:: 8 How many naps do you take a day and for how long?: I try not to nap during the day - 0 Do you feel refreshed after your naps?: No Do you do shift work or work overnights?: No Current Outpatient Medications: chlorthalidone (HYGROTON) 50 MG tablet, Take 1 tablet (50 mg total) by mouth daily., Disp: 90 tablet, Rfl: 3 metoprolol succinate XL (TOPROL XL) 25 mg 24 hr tablet, Take 1 tablet (25 mg total) by mouth in the morning. TAKE 1 TABLET BY MOUTH EVERY MORNING AND 1 TABLET BEFORE BEDTIME., Disp: 180 tablet, Rfl: 2 multivit-min/ferrous fumarate (MULTI VITAMIN ORAL), Take 1 tablet by mouth daily., Disp: , Rfl: potassium chloride (KLOR-CON M 20) 20 MEQ CR tablet, Take 1 tablet (20 mEq total) by mouth in the morning., Disp: 90 tablet, Rfl: 3 Review of Systems Constitutional: Positive for fatigue. Negative for chills and fever. HENT: Negative for postnasal drip and rhinorrhea. Respiratory: Negative for cough and shortness of breath. Cardiovascular: Negative for chest pain and palpitations. Psychiatric/Behavioral: Positive for sleep disturbance. Sleep Data: [place] Sleepiness Scale Sitting and Reading: (!) Moderate Chance Watching TV: (!) High Chance Sitting inactive in a public place (theater, meeting): Slight Chance As a passenger in a car for an hour without a break: Slight Chance Lying down in the afternoon to rest: (!) High Chance Sitting and talking to someone: Never Sitting quietly after lunch (without alcohol): (!) Moderate Chance In a car, while stopped for a few minutes in traffic: Never Total: 12 Impression: Diagnoses and all orders for this visit: JOSE (obstructive sleep apnea) - AUTO PAP: 5-12 Excessive daytime sleepiness BMI 34.0-34.9,adult Vivid dream JOSE Excessive daytime sleepiness Vivid dreams BMI 34.57 Former smoker Palpitations Hypertension Plan Start auto PAP 5-12 cm H2O on a nightly basis. New PAP mask supplies as needed. Diet and exercise were discussed in detail. Encouraged COVID/influenza vaccine Any age appropriate or routine screening per PCP. Follow up in 6 Months time. If her condition should change prior to this she is encouraged to give our office a call. This encounter was completed completely by video visit. The patient was made aware that this may be a billable service and consented to the video visit. This call lasted approximately 18 minute and more than 50% of the time was spent in direct counseling. EDUCATION: Health risks associated with untreated JOSE were discussed (cardiopulmonary, cerebrovascular, and anesthesia/sedative-related). Risks associated with excessive daytime sleepiness, particularly while driving/operating machinery were discussed. The patient was instructed to avoid such activities if feeling sleepy, and to stop the activity if sleepiness occurs (parts puller at the next safe opportunity if driving). Discussed triggers to call back before next office visit including weight change > 10%, major medical issues including stroke, arrhythmia or heart attack, or significant change in symptoms. This note is dictated with the use of M*Modal.Please note that this dictation was completed with computer voice recognition software. Quite often unanticipated grammatical, syntax, homophones, and other interpretive errors are inadvertently transcribed by the computer software. Please disregard these errors. Please excuse any errors that have escaped final proofreading. BAYLEE Peraza 10/30/24 [id number] documented in this encounter [facility] 10-30-2024 Instructions BAYLEE Peraza - 10/30/2024 10:00 AM EST Images from the original note were not included. If you re looking for general health and wellness resources, please visit [email or web address]. documented in this encounter [facility] 10-15-2024 Miscellaneous Notes Home sleep testing ordered by Dr. Brand for PPG read/follow Positive for JOSE,please see full report She is scheduled with Abi Nguyen ASSISTANT PROFESSOR OF SURGERY 10/30/24 to review results/treatment options Home sleep apnea test on 10/05/2024 (CROW (3%)=7.6 events/hour; CROW (4%)=2.0 events/hour; Doe SpO2=88.0%; Bixlwx=863.0 lbs; BMI=34.8 kg/m2) DIAGNOSIS: Obstructive Sleep Apnea (G47.33) COMMENTS: This home sleep apnea test demonstrates at least mild obstructive sleep apnea. Please note that home sleep testing may underestimate sleep apnea severity due to alack of EEG monitoring. Of note, [place] sleepiness scale score was 11/24 (hypersomnolent) on 10/05/24. TREATMENT CONSIDERATIONS: A trial of CPAP is recommended. Thank you so much for the update. Needs CPAP please refer her to office for CPAP LM w/ sleep study results. Asked pt to return call to verify has appt w/ sleep lab [place] pt, and Parvin RN from [facility] has already reached out to pt. documented in this encounter [facility] 10-15-2024 Telephone encounter Note Home sleep testing ordered by Dr. Brand for PPG read/follow Positive for JOSE,please see full report She is scheduled with Abi Nguyen APRN 10/30/24 to review results/treatment options Home sleep apnea test on 10/05/2024 (CROW (3%)=7.6 events/hour; CROW (4%)=2.0 events/hour; Doe SpO2=88.0%; Vdhcwq=887.0 lbs; BMI=34.8 kg/m2) DIAGNOSIS: Obstructive Sleep Apnea (G47.33) COMMENTS: This home sleep apnea test demonstrates at least mild obstructive sleep apnea. Please note that home sleep testing may underestimate sleep apnea severity due to alack of EEG monitoring. Of note, [place] sleepiness scale score was 11/24 (hypersomnolent) on 10/05/24. TREATMENT CONSIDERATIONS: A trial of CPAP is recommended. [facility] Work Phone: 10-15-2024 Telephone encounter Note Thank you so much for the update. [facility] Work Phone: 10-15-2024 Telephone encounter Note Needs CPAP please refer her to office for CPAP [facility] 10-15-2024 Telephone encounter Note LM w/ sleep study results. Asked pt to return call to verify has appt w/ sleep lab [facility] 10-15-2024 Telephone encounter Note [facility] pt, and Parvin RN from [facility] has already reached out to pt. [facility] 08-31-2024 Miscellaneous Notes From 08/19/24 sleep lab encounter: Dayna Loya MD routed conversation to You; [facility] Front Desk3 days ago OK for HST PPG read/follow LVM to schedule MARKETING RESEARCHER sleep appt. Reminder in place for 2nd attempt *HST is currently scheduled on 09/25 [facility] 08-31-2024 Telephone encounter Note From 08/19/24 sleep lab encounter: Dayna Loya MD routed conversation to You; [facility] Front Desk3 days ago OK for HST PPG read/follow [facility] 08-31-2024 Telephone encounter Note LVM to schedule MARKETING RESEARCHER sleep appt. Reminder in place for 2nd attempt *HST is currently scheduled on 09/25 [facility] 08-31-2024 Miscellaneous Notes Images from the original note were not included. Jasmin Pruett RN routed conversation to [facility] Clinical Staff4 hours ago (6:30 AM) Lucrecia Gaviria Clinical Staff (supporting Yasmeen Brand MD)2 days ago JG Due to ongoing issues with [facility], I have changed my preferred pharmacy from [facility] to [facility], in [place], [place]. [facility] reports difficulties getting scripts from [facility]. With that being said, they asked for the scripts to be sent to them from the prescribing doctor. With that being said, please send my prescriptions from my visit on 08/14/24 to [facility]. They are Chlorthalidone, Potassium, & Metoprolol. Thank you! [facility]-31-[facility]24 Telephone encounter Note Images from the original note were not included. Jasmin Pruett RN routed conversation to [facility] Clinical Staff4 hours ago (6:30 AM) Lucrecia Gaviria Clinical Staff (supporting Yasmeen Brand MD)2 days ago JG Due to ongoing issues with [facility], I have changed my preferred pharmacy from [facility] to [facility], in [place], [place]. [facility] reports difficulties getting scripts from [facility]. With that being said, they asked for the scripts to be sent to them from the prescribing doctor. With that being said, please send my prescriptions from my visit on 08/14/24 to [facility]. They are Chlorthalidone, Potassium, & Metoprolol. Thank you! [facility] 08-19-2024 Miscellaneous Notes 08/14 Order received 08/19 Called PT ANNIE to schedule sleep study. HST Order and 08/14/24 Franko Brand Epic Notes documented in this encounter [facility] [facility] 08-19-[facility]24 Telephone encounter Note 08/14 Order received 08/19 Called PT ANNIE to schedule sleep study. HST Order and 08/14/24 Franko Brand Epic Notes [facility] 08-14-2024 History of Presen t illness Narrative Lucrecia Judge Date of visit: 08/14/2024 Date of : 1985 Age: 38 y.o. Patient Active Problem List Diagnosis Bilateral leg edema Palpitations No Known Allergies Current Outpatient Medications Medication Sig Dispense Refill multivit-min/ferrous fumarate (MULTI VITAMIN ORAL) Take 1 tablet by mouth daily. BLISOVI FE 10/26, , 1 mg-20 mcg (21)/75 mg (7) per tablet Take 1 tablet by mouth in the morning. chlorthalidone (HYGROTON) 50 MG tablet Take 1 tablet (50 mg total) by mouth daily. 90 tablet 3 metoprolol succinate XL (TOPROL XL) 25 mg 24 hr tablet Take 1 tablet (25 mg total) by mouth in the morning. TAKE 1 TABLET BY MOUTH EVERY MORNING AND 1 TABLET BEFORE BEDTIME. 180 tablet 2 potassium chloride (KLOR-CON M 20) 20 MEQ CR tablet Take 1 tablet (20 mEq total) by mouth in the morning. 90 tablet 3 No current facility-administered medications for this visit. Chief Complaint Patient presents with Follow-up 12 months Palpitations Chest Pain History of Present Illness 38 yo F with medical history of primary HTN and palpitations here in follow up. Palpitations treated for years with metoprolol unclear etiology. Patient is not sure , had a Holter monitor few years ago ordered by primary care physician and is not sure about the diagnosis BP managed by PCP controlled, recenltly increased thiazide dose with subsequent hypokalemia, now on K supplements and corrected. Never tested for primary causes but does not have any clinical/ biochemical signs suggestive of secondary causes. She has a family history of HTN Past Medical History: Diagnosis Date Dizziness Hypertension Palpitations No data recorded No data recorded No data recorded Past Surgical History: Procedure Laterality Date BREAST BIOPSY Right Family History Problem Relation Age of Onset Hypertension Father Hyperlipidemia Father Heart disease Paternal grandparent Heart attack Paternal grandparent Social History Socioeconomic History Marital status: Spouse name: Not on file Number of children: Not on file Years of education: Not on file Highest education level: Not on file Occupational History Not on file Tobacco Use Smoking status: Former Current packs/day: 0.00 Types: Cigarettes Quit date: 10/2019 Years since quittin.8 Smokeless tobacco: Never Vaping Use Vaping status: Never Used Substance and Sexual Activity Alcohol use: Yes Comment: occasional Drug use: Never Sexual activity: Not on file Other Topics Concern Caffeine Use Yes Social History Narrative Not on file Social Drivers of Health Financial Resource Strain: Not on file Food Insecurity: No Food Insecurity (08/14/2024) Hunger Screening Food Insecurity - Worry: Never True Food Insecurity - Inability: Never True Transportation Needs: Not on file Physical Activity: Not on file Stress: Not on file Social Connections: Not on file Interpersonal Safety: Not on file Housing Instability: Not on file Review of Systems Review of Systems Constitutional: Negative. HENT: Negative. Eyes: Negative. Respiratory: Negative. Hematologic/Lymphatic: Negative. Skin: Negative. Musculoskeletal: Positive for back pain. Gastrointestinal: Negative. Neurological: Positive for headaches and light-headedness. Psychiatric/Behavioral: Positive for depression. The patient is nervous/anxious. Allergic/Immunologic: Negative. CARDIOVASCULAR: Please review HPI. Physical Examination General appearance: Alert, oriented and cooperative. In no acute distress. Skin: Warm and dry to touch. Head: Normocephalic, without obvious abnormality, atraumatic. Ears, Nose, Mouth, Throat: Throat clear without erythema or exudate. Dentition intact. Eyes: Conjunctivae unremarkable, EOM intact. Neck: No JVD, No carotid bruit. Neck supple, trachea midline. Respiratory: Clear to auscultation bilaterally, no use of accessory muscles. Cardiovascular: RRR with normal S1 and S2 with no murmurs. Gastrointestinal: Soft, non-tender. Bowel sounds normal. Musculoskeletal: No peripheral edema. Neurologic: Oriented to time, person and place, affect appropriate. No focal/major motor defects noted. Psychiatric: Appropriate mood, memory and judgement. VITAL SIGNS: BP 112/70 (BP Site: Left Arm, BP Postition: Sitting) Pulse 78 Ht 157.5 cm (5' 2 ) Wt 85.7 kg (189 lb) SpO2 97% BMI 34.57 kg/m Orders Placed or Reconciled This Encounter Medications chlorthalidone (HYGROTON) 50 MG tablet Sig: Take 1 tablet (50 mg total) by mouth daily. Dispense: 90 tablet Refill: 3 metoprolol succinate XL (TOPROL XL) 25 mg 24 hr tablet Sig: Take 1 tablet (25 mg total) by mouth in the morning. TAKE 1 TABLET BY MOUTH EVERY MORNING AND 1 TABLET BEFORE BEDTIME. Dispense: 180 tablet Refill: 2 potassium chloride (KLOR-CON M 20) 20 MEQ CR tablet Sig: Take 1 tablet (20 mEq total) by mouth in the morning. Dispense: 90 tablet Refill: 3 Medications Discontinued During This Encounter Medication Reason chlorthalidone (HYGROTON) 50 MG tablet Reorder potassium chloride (KLOR-CON M 20) 20 MEQ CR tablet Reorder metoprolol succinate XL (TOPROL XL) 25 mg 24 hr tablet Reorder IMPRESSIONS/PLAN 1. Palpitations - POCT EKG - Holter monitor 3-5 days; Future - chlorthalidone (HYGROTON) 50 MG tablet; Take 1 tablet (50 mg total) by mouth daily. Dispense: 90 tablet; Refill: 3 - metoprolol succinate XL (TOPROL XL) 25 mg 24 hr tablet; Take 1 tablet (25 mg total) by mouth in the morning. TAKE 1 TABLET BY MOUTH EVERY MORNING AND 1 TABLET BEFORE BEDTIME. Dispense: 180 tablet; Refill: 2 2. Snoring - Home sleep study; Future 3. Essential hypertension - chlorthalidone (HYGROTON) 50 MG tablet; Take 1 tablet (50 mg total) by mouth daily. Dispense: 90 tablet; Refill: 3 - metoprolol succinate XL (TOPROL XL) 25 mg 24 hr tablet; Take 1 tablet (25 mg total) by mouth in the morning. TAKE 1 TABLET BY MOUTH EVERY MORNING AND 1 TABLET BEFORE BEDTIME. Dispense: 180 tablet; Refill: 2 4. Localized edema - chlorthalidone (HYGROTON) 50 MG tablet; Take 1 tablet (50 mg total) by mouth daily. Dispense: 90 tablet; Refill: 3 - metoprolol succinate XL (TOPROL XL) 25 mg 24 hr tablet; Take 1 tablet (25 mg total) by mouth in the morning. TAKE 1 TABLET BY MOUTH EVERY MORNING AND 1 TABLET BEFORE BEDTIME. Dispense: 180 tablet; Refill: 2 5. Shortness of breath - chlorthalidone (HYGROTON) 50 MG tablet; Take 1 tablet (50 mg total) by mouth daily. Dispense: 90 tablet; Refill: 3 - metoprolol succinate XL (TOPROL XL) 25 mg 24 hr tablet; Take 1 tablet (25 mg total) by mouth in the morning. TAKE 1 TABLET BY MOUTH EVERY MORNING AND 1 TABLET BEFORE BEDTIME. Dispense: 180 tablet; Refill: 2 6. Other fatigue - chlorthalidone (HYGROTON) 50 MG tablet; Take 1 tablet (50 mg total) by mouth daily. Dispense: 90 tablet; Refill: 3 - metoprolol succinate XL (TOPROL XL) 25 mg 24 hr tablet; Take 1 tablet (25 mg total) by mouth in the morning. TAKE 1 TABLET BY MOUTH EVERY MORNING AND 1 TABLET BEFORE BEDTIME. Dispense: 180 tablet; Refill: 2 7. Hypokalemia - potassium chloride (KLOR-CON M 20) 20 MEQ CR tablet; Take 1 tablet (20 mEq total) by mouth in the morning. Dispense: 90 tablet; Refill: 3 Holter Sleep study Continue metoprolol TODAYS ORDERS Orders Placed This Encounter Procedures Holter monitor 3-5 days POCT EKG Home sleep study FOLLOW UP Return in about 6 months (around 02/11/2025). PCP: PALMIRA WORTHY MD Referring Physician: Palmira Worthy MD [facility] [place] [address] documented in this encounter [facility] 08-14-2024 Instructions Yasmeen Brand MD - 08/14/2024 2:00 PM EST --- Start 400 mg of magnesium nightly after you return the monitor -- Increase potassium in your diet (avocado /bananas ) a couple times a week documented in this encounter [facility] 08-13-2024 Miscellaneous Notes Called patient to remind them to bring their most current copy of their medication list with them to their appt. Patient verbalizes understanding. documented in this encounter [facility] 08-13-2024 Telephone encounter Note Called patient to remind them to bring their most current copy of their medication list with them to their appt. Patient verbalizes understanding. [facility] 10-06-2023 Evaluation note Encounter Date Diagnosis Assessment Notes Sep, Acute cough (ICD-10 - R05.1) Sep, Acute middle ear effusion, bilateral (ICD-10 - H65.193) Advised patient that COVID/influenza A/B test was negative today in office. Discussed diagnosis with patient, explained to patient that there is middle ear fluid without signs of bacterial infection, antibiotics are not indicated at this time. This is commonly due to ET dysfunction, viral illness, allergies, barotrauma, or recent AOM. Advised patient that fluid in middle ear may take several weeks to resolve. Take rx medications as directed. Supportive treatment as directed, push fluids/test, Tylenol/Motrin for discomfort. Follow up with PCP in 2 weeks or sooner for new or worsening symptoms. Patient verbalizes understanding and is agreeable to treatment plan [facility] ([facility] Other 03-15-2023 Evaluation note* Encounter Date Diagnosis Assessment Notes Treatment Notes Treatment Clinical Notes Dec, Bilateral otitis media, unspecified otitis media type (ICD-10 - H66.93) Middle ear infection: adult home care material was printed Drink plenty fluids, get plenty of rest. Take the amoxicillin as prescribed until gone. Use eardrops as prescribed. Take Tylenol or Motrin for aches pains or fevers. Follow-up with your family physician if no improvement in 2 to 3 days. Dec, Acute otitis externa of both ears, unspecified type (ICD-10 - H60.503) [employer] [facility] ([facility] Other 07-05-2019 Evaluation note* Diagnosis Onset Date Resolution Status Admit Date Essential (primary) hypertension April 10, 2019 acute October 20 11:04am [facility] Work Phone: Evaluation note* Diagnosis Palpitations Essential hypertension Unspecified essential hypertension Localized edema Edema Shortness of breath Other fatigue [facility] Diagnosis Hypokalemia Hypopotassemia [facility] Diagnosis Palpitations- Primary Snoring Other dyspnea and respiratory abnormality Essential hypertension Unspecified essential hypertension Localized edema Edema Shortness of breath Other fatigue Hypokalemia Hypopotassemia [facility] Diagnosis Palpitations Essential hypertension Unspecified essential hypertension Localized edema Edema Shortness of breath Other fatigue Hypokalemia Hypopotassemia [facility] Diagnosis Snoring Other dyspnea and respiratory abnormality [facility] Diagnosis JOSE (obstructive sleep apnea)- Primary Obstructive sleep apnea (adult) (pediatric) Excessive daytime sleepiness BMI 34.0-34.9,adult Vivid dream [facility] Diagnosis Well woman exam with routine gynecological exam Routine gynecological examination documented [facility] N[facility] - Reported* Type Description Date Medical History Hypertension Medical History heart palpitations Surgical History breast biopsy [employer] [facility] [facility] ([facility] Other InstructionsNot on filedocumented in this encounter [facility] filedocumented [facility] this [facility] filedocumented in this [facility] filedocumented in this encounter [facility] filedocumented in this encounter [facility] filedocumented in this encounter [facility] on filedocumented in this [facility] Narrative* Misc (Routine) - Closed Specialty Diagnoses / Procedures Referred By [employer] t Referred To Contact Diagnoses Snoring Procedures Home sleep study Yasmeen Brand MD [address] [place] [address] Phone: tel: fax: Referral ID Status Reason Start Date Expiration Date Visits Re quested Visits Authorized [id number] Closed 08/14/2024 08/14/2025 1 1 [facility] Summary Purpose Family History Relationship Condition Age at Onset Recorded Date/T magaly father Hypertension Unknown Advance Directives Advance Directive Response Recorded Date/ Time Advance Directives No October 20, 2024 10:34am Chief Complaint and Reason for Visit Chief Complaint Admit Date re-establish, vertigo October 20, 2024 11:04am Reason for Visit Admit Date Essential (primary) hypertension October 20, 2024 11:04am Additional Source Comments INFORMATION SOURCE (unrecogn ized section and content) DATE CREATED AUTHOR 11/07/2022 [facility] pital DATE CREATED AUTHOR AUTHOR'S ORGANIZ ATION 11/04/2023 [facility] EPIC DATE CREATED AUTHOR AUTHOR'S ORGANIZ ATION 10/16/2024 [facility] REASON FOR VISIT (unrecogniz ed section and content) Reason Comments Med Refill Reason Onset Date Comments Med Refill 10/25/2023 Reason Onset Date Comments Med Refill 12/16/2023 Reason Comments Follow-up 12 months Palpitations Chest Pain Reason Onset Date Comments Sleep Lab 08/19/2024 HST Reason Onset Date Comments Med Refill 08/31/2024 Reason Comments [facility] Visit Care Teams (unrecognized sec tion and content) Professor Of Social Work Relationship Specialty [place] [address] [place], [place] [id number] PCP - General Family Medicine 11/04/20 Professor Of Social Work Relationship Specialty Start Date End Date Palmira Worthy MD [address] [place] [id number] PCP - General Family Medicine 11/04/20 Professor Of Social Work Relationship Specialty Start Date End Date Palmira Worthy MD [address] [place] [phone] PCP - General Family Medicine 11/04/23 Professor Of Social Work Relationship Specialty Start Date End Date Palmira Worthy MD [address] [place] [id number] PCP - General Family Medicine 11/04/20 Professor Of Social Work Relationship Specialty Start Date End Date Palmira Worthy MD [address] [place] [id number] PCP - General Family Medicine 11/04/20 Professor Of Social Work Relationship Specialty Start Date End Date Palmira Worthy MD [address] [place], [place] [phone] PCP - General Family Medicine 11/04/20 Professor Of Social Work Relationship Specialty Start Date End Date Palmira Worthy MD [address] [place] [address] [phone] PCP - General Family Medicine 11/04/20 Professor Of Social Work Relationship Specialty Start Date End Date Palmira Worthy MD [address] [place] [id number] PCP - General Family Medicine 11/04/20 Team Status: Active Member Role Status Dates Palmira Worthy MD Primary Care Provider Active Team Status: Inactive Member Role Status Dates Palmira Worthy MD Primary Care Provide r, Attending Provider Active Start: October 20, 2024 End: October 20, 2024 Professor Of Social Work Relationship Specialty Start Date End Date Palmira Worthy MD [address] [place] [address] [id number] PCP - General Family Medicine 11/04/20 Professor Of Social Work Relationship Specialty Start Date End Date Palmira Worthy MD [address] [place] [phone] PCP - General Family Medicine 11/04/23 Professor Of Social Work Relationship Specialty Start Date End Date Palmira Worthy MD [address] [place] [phone] PCP - General Family Medicine 11/04/23 Goals (unrecognized section and content) Goals may be documented in a n alternate section FOR RECORDS PERTAINING TO PATIENTS WHO ARE OR HAVE BEEN ENROLLED IN A CHEMICAL DEPENDENCY/SUBSTANCEABUSE PROGRAM, SOME INFORMATION MAY BE OMITTED. This clinical summary was aggregated from multiple sources. Caution should be exercised in using it in the provision of clinical care. This summary normalizes information from multiple sources, and as a consequence, information in this document may materially change the coding, format and clinical context of patient data. In addition, data may be omitted in some cases. CLINICAL DECISIONS SHOULD BE BASED ON THE PRIMARY CLINICAL RECORDS. [employer] [facility]. provides no warranty or guarantee of the accuracy or completeness of information in this document.
[2024-11-13 11:08] LABS: Age Gdln ACOG Testing Note (.); HPV Aptima Negative (Negative); IGP, Aptima HPV, rfx 16/18,45 Note (.)
== END 2024-11-09 21:19 | disposition home or self-care (01) ==
LOC: LAB 21:18
PROVIDERS: Visit Provider Physician Assistant
DX: Z01.419 Encounter for gynecological examination (general) (routine) without abnormal findings (principal)
CPT/HCPCS: 87624; 88175